=== PATIENT | male | born 1955 | race Caucasian/White ===

== ENCOUNTER 2017-12-01 11:51 | Emergency (ER) | payer OTHER ==
[2017-12-01 11:59] VITALS: BP 155/101
--- NOTE | 2017-12-01 12:45 | ED Physician Documentation ---
History of Present Illness - Stated complaint Stated Complaint: R FINGER RASH - Chief complaint Chief Complaint: Ext Problem - History obtained from History obtained from: Patient, Family () - History of Present Illness Timing: How many weeks ago (2) Pain level max: 0 Pain level now: 0 Quality: itching Improved by: nothing Worsened by: nothing - Additonal information Additional information: Patient noted that he has bumps to the R index finger for the past week or so. States worse today. Hasn't taken anything for this. Review of Systems Constitutional: denies: Fever, Chills PD PAST MEDICAL HISTORY - Past Medical History Past Medical History: No - Past Surgical History Past Surgical History: No - Present Medications Home Medications: Ambulatory Orders Medication Instructions Recorded Confirmed Tadalafil [Cialis] mg PO 12/01/17 predniSONE [Deltasone] 10 mg PO [id number] #[id number] tab 12/01/17 - Allergies Allergies/Adverse Reactions: Allergies Allergy/AdvReac Type Severity Reaction Status Date / Time soy Allergy Nausea Verified 12/01/17 11:58 wheat Allergy Nausea Verified 12/01/17 11:58 - Living Situation Living Situation: reports: With family Living Arrangement: reports: At home - Social History Does the pt smoke?: No Does the pt have substance abuse?: No PD ED PE NORMAL - Vitals Vital signs reviewed: Yes - General General: Alert and oriented X 3, No acute distress - HEENT HEENT: Moist mucous membranes - Derm Derm: Warm and dry - Extremities Extremities: Other (r index finger - small papules and excoriation zamorano. over the finger. no signs of infection.) - Neuro Neuro: Alert and oriented X 3 Results - Vitals Vitals: Vital Signs - 24 hr 12/01/17 11:55 Temperature 36.2 C L Heart Rate 66 Respiratory 18 Rate Blood Pressure 155/101 H O2 Saturation 96 PD MEDICAL DECISION MAKING - ED course Complexity details: considered differential, d/w patient ED course: Patient is a 62-year-old male with right index finger that appears consistent with dyshidrotic eczema. Will place on steroids. He had been applying clobetasol at home. We will have him follow-up with his doctor for further care. No evidence of infection. No cellulitis. Patient counseled regarding signs and symptoms for which I believe and urgent re-evaluation would be necessary. Patient with good understanding of and agreement to plan and is comfortable going home at this time This document was made in part using voice recognition software. While efforts are made to proofread this document, sound alike and grammatical errors may occur. - Sepsis Event Vital Signs: Vital Signs - 24 hr 12/01/17 11:55 Temperature 36.2 C L Heart Rate 66 Respiratory 18 Rate Blood Pressure 155/101 H O2 Saturation 96 Departure - Departure Disposition: 01 Home, Self Care Clinical Impression: Dyshidrotic eczema Condition: Good Instructions: ED Dermatitis Atopic Eczema Follow-Up: your,doctor in 1week [Other] Prescriptions: predniSONE [Deltasone] 10 mg PO [id number] #42 tab Comments: Take all steroids until gone. Return if you worsen. Follow-up with your doctor for further care. You can also try an emollient-based lotion.
== END 2017-12-01 12:50 | disposition home or self-care (01) ==
LOC: ED 11:51
DX: L30.1 Dyshidrosis [pompholyx] (principal)
CPT/HCPCS: 99283